=== PATIENT | male | born 1950 | race Caucasian/White ===

== ENCOUNTER 2019-09-02 18:16 | Inpatient (IN) ==
[2019-09-02] MEDS ORDERED: SODIUM CHLORIDE 0.9% 1000ML 1,000 ML IV SCH (18:45)
--- NOTE | 2019-09-02 18:48 | XRay Report ---
XR chest 1V portable CLINICAL HISTORY: fever COMPARISON STUDY: December 2010 FINDINGS: The heart is mildly enlarged. There is a retrocardiac opacity consistent with a hiatal jane ia. There is no failure. There is no focal pulmonary consolidation. There are no pleural effusions.[ IMPRESSION: 1. Cardiomegaly 2. Hiatal hernia 3. No acute findings Electronically signed by: Raúl Borges M.D. 09/02/2019 6:47 PM
[2019-09-02 19:27] LABS: Basophils # (auto) 0.01 K/uL (0-0.2); Basophils % (auto) 0.1 %; Eosinophils # (auto) 0.01 K/uL (0-0.5); Eosinophils % (auto) 0.1 %; Hematocrit (blood only) 40.2 % (42-52); Hemoglobin 13.2 g/dL (14.0-18.0); Immature Granulocytes # (auto) 0.01 K/uL (0.00-0.02); Immature Granulocytes % (auto) 0.1 %; Lymphocytes # (auto) 0.71 K/uL (1.2-3.4); Lymphocytes % (auto) 7.9 %; Mean Corpuscular Hemoglobin 28.6 pg (25-34); Mean Corpuscular Hgb Conc 32.8 g/dL (32-36); Mean Corpuscular Volume 87.2 fL (80-100); Mean Platelet Volume 12.1 fL (7.4-10.4); Monocytes # (auto) 0.44 K/uL (0.11-0.59); Monocytes % (auto) 4.9 %; Neutrophils # (auto) 7.85 K/uL (1.4-6.5); Neutrophils % (auto) 86.9 %; Platelet Count 156 K/uL (130-400); RDW Standard Deviation 47.8 fL (36.4-46.3); Red Blood Count 4.61 M/uL (4.7-6.1); White Blood Count 9.03 K/uL (4.8-10.8)
[2019-09-02 19:44] LABS: Alanine Aminotransferase 42 U/L (12-78); Albumin Level 3.3 gm/dl (3.4-5.0); Aspartate Aminotransferase 24 U/L (15-37); BUN Creatinine Ratio 16.2 (10-20); Blood Urea Nitrogen 18 mg/dl (7-18); Calcium 8.7 mg/dl (8.5-10.1); Carbon Dioxide 28 mmol/L (21-32); Chloride 105 mmol/L (98-107); Creatinine Clr Calc Pharmacy 69.7 ml/min; Est GFR (African American) 77.8; Est GFR (Non-African American) 67.1; Glucose 110 mg/dl (70-99); Potassium 3.8 mmol/L (3.5-5.1); Sodium 141 mmol/L (136-145)
[2019-09-02 19:49] LABS: Alkaline Phosphatase 112 U/L (45-117); Bilirubin,Total 0.5 mg/dl (0.2-1); Globulin 3.4 gm/dl (2.5-4.0); Total Protein 6.7 gm/dl (6.4-8.2); Troponin I < 0.015 ng/ml (0-0.045)
[2019-09-02] MEDS ORDERED: IOVERSOL 100ml IV PRN (20:30)
--- NOTE | 2019-09-02 20:41 | CT Scan Report ---
CT head/brain wo con CLINICAL HISTORY: Acute change in mental status. Episode delirium. COMPARISON STUDY: No previous studies for comparison. TECHNIQUE: Axial CT of the brain is performed from the vertex to the skull base. IV contrast was not administered for this examination. A dose lowering technique was utilized adhering to the principles of ALARA. CT DOSE: 773.57 mGy.cm FINDINGS: No intra or extra-axial mass lesions are visualized. There is no CT evidence of acute cortical infarc tion. There is no evidence of midline shift. There is no acute hemorrhage. No calvarial fractures ar e visualized. There are mild white matter hypodensities likely on a small vessel basis. There is no evidence of pathologic ventricular dilatation. There is no evidence of acute sinusitis IMPRESSION: No acute intracranial findings Electronically signed by: Raúl Borges M.D. 09/02/2019 8:39 PM
--- NOTE | 2019-09-02 20:51 | CT Scan Report ---
CT abd pelvis IV con only CLINICAL HISTORY: Abdominal pain. Fever. History of recent endoscopy with sphincterotomy. COMPARISON STUDY: None. TECHNIQUE: Patient was scanned in a dynamic helical fashion during intravenous administration of 93 c c of Optiray 320. A dose lowering technique was utilized adhering to the principles of ALARA. CT DOSE: 740.17 mGy.cm FINDINGS: Lower chest: There are left hilar ron calcifications. There is a moderate hiatal hernia. There are dependent atelectatic changes. There is no significant pleural fluid. Liver: There are no focal hepatic masses. There is pneumobilia consistent with the history of a St. c arotid. Gallbladder: Surgically absent. The common bile duct measures 9 mm. There is mild common bile duct wa ll thickening and mild edema surrounding the common hepatic duct. Clinical correlation regards to cho langitis is recommended. Spleen: The spleen is enlarged measuring 14.4 cm. Pancreas: Unremarkable. Adrenal glands: Unremarkable. Kidneys: No solid renal masses are visualized. There are nonobstructing left renal calculi. Bowel: There are no transition zones to indicate bowel obstruction. There is no evidence of acute div erticulitis. The appendix appears normal. Peritoneum: There is no free intraperitoneal air. There is trace free pelvic fluid. Vasculature: The abdominal aorta is normal in course and caliber. Adenopathy: None. Pelvic viscera: The bladder, and pelvic viscera are unremarkable. Skeletal structures: No destructive osseous lesions are seen. IMPRESSION: 1. No evidence of bowel obstruction. No evidence of free air 2. Normal appendix. No evidence of acute diverticulitis 3. Mild splenomegaly 4. Surgically absent gallbladder. 9 mm common bile duct with mild wall thickening and enhancement. Ad dition there is minimal edema surrounding the common hepatic duct. Clinical correlation regards to ch olangitis is recommended 5. Nonobstructing left renal calculi Electronically signed by: Raúl Borges M.D. 09/02/2019 8:49 PM
[2019-09-02] MEDS ORDERED: PIPERACILL/TAZOBAC CONSULT ACTIVE PRN ×2 (21:03→22:45)
[2019-09-02] MEDS ORDERED: PIPERACILLIN/TAZOBACTAM 4.5 GM/120 ML BAG IV ONE (21:03)
[2019-09-02] MEDS ORDERED: POLYETHYLENE (MIRALAX) 17 GM PACK PO PRN (22:45)
[2019-09-02] MEDS ORDERED: ACETAMINOPHEN 325 MG TAB PO PRN (22:45)
[2019-09-02] MEDS ORDERED: NITROGLYCERIN SL 0.4 MG/TAB TAB SL PRN (22:45)
--- NOTE | 2019-09-02 23:04 | Emergency Department Note ---
Entered by Radha Kleni acting as a scribe for Amy Key MD History of Present Illness General Chief complaint: Vertigo Stated complaint: DIZZY, HEADACHE Source: patient and family History of Present Illness Onset (ago): hour(s) 2 Location: head Maximum Pain Intensity: 2 Current Pain Intensity: 2 Quality: + other (disoriented) Associated symptoms: + confusion, + fever/chills and + other (dizziness) The patient is a 69 year old male who presents to the Emergency Room with complaints of dizziness and confusion that started a few hours ago. The patient reports that he had an endoscopy done at [facility] yesterday to remove gallstones. He was discharged home and felt normal until earlier today. He states that he started to feel dizzy and disoriented, so he drank water and ate a piece of pizza. He then went to lay down in his bed, and the patient's reports that this is when he began to not make sense while talking to her. She states that when she took his temperature, and it was over 101 degrees. Since arrival to the hospital, the patient has been coherent and his temperature had lowered to about 99 degrees. The patient has not been taking any pain medicine, and his last dose of Tylenol was taken yesterday around 18:00. Home Medications Home Medications Medication Instructions Recorded Confirmed Type allopurinol 100 mg PO QAM 09/02/19 09/02/19 History amlodipine 10 mg PO QAM 09/02/19 09/02/19 History aspirin 81 mg PO QAM 09/02/19 09/02/19 History atorvastatin 40 mg PO QAM 09/02/19 09/02/19 History famotidine 40 mg PO DAILY PRN 09/02/19 09/02/19 History magnesium 0 mg PO QAM 09/02/19 09/02/19 History metoprolol succinate 25 mg PO QAM 09/02/19 09/02/19 History omeprazole 20 mg PO QAM 09/02/19 09/02/19 History Allergies Allergy/AdvReac Type Severity Reaction Status Date / Time No Known Allergies Allergy Verified 09/02/19 19:53 Past Med/Surg History Medical History No pertinent past medical history Surgical History History of cholecystectomy Social History Preferred Language: Sinhala Communication Ability: Effective Roofer Required: No Beliefs That Will Affect Care: None Current Living Situation: Spouse Feels Safe at Home: Yes Safety Concerns: Feels Safe At This Time Smoking Status: Never smoker Hx Alcohol Use: No Hx Substance Use: No Review of Systems See HPI for pertinent positives & negatives. and A total of 10 systems reviewed and were otherwise negative Physical Exam Vital Signs Vital Signs - 24 hr 09/02/19 18:20 09/02/19 20:55 Temperature 37.4 C Temperature Source Oral Sepsis Recent Fever Within 48 Hours No Sepsis New/Unexplained Change in Mental Status No Sepsis Action Taken by Nursing No Action Required Pulse Rate 68 Pulse Rate [Left Finger] 56 L Respiratory Rate 18 18 Blood Pressure 130/84 Blood Pressure [Right Arm] 115/73 Blood Pressure Mean 99 Blood Pressure Mean [Right Arm] 87 Blood Pressure Position [Right Arm] Sitting Pulse Oximetry 98 92 Oxygen Delivery Method Room Air Nasal Cannula Oxygen Flow Rate 2 Vital signs reviewed. General: Well-appearing elderly male, in no significant distress. HEENT: No scleral icterus, PERRLA, neck supple. Atraumatic. Cardiovascular: Regular rate and rhythm, no extra sounds. Pulmonary: Clear to auscultation bilaterally, normal work of breathing. Abdomen: Soft, nontender, nondistended, positive bowel sounds. Musculoskeletal: Atraumatic, no peripheral edema. Neurologic: Patient awake alert and oriented x 3, full strength in all 4 extremities. Skin: Warm, dry, no rash Course 1834: Past medical records reviewed. The patient was evaluated in room B02. A complete history and physical exam was performed. 2107: I updated the patient on his lab and imaging results. 2116: I rechecked on the patients and discussed his condition with him and his family. The patient verbally expressed understanding and agreement of the treatment plan. The patient will be evaluated for further treatment. I spoke to Dr. Jackson, [facility] hospitalist, who agreed to take over care for this patient. Administered Medications Dextrose/Sodium Chloride (D5w And Nss) 1,000 mls @ 125 mls/hr IV .Q8H MEAGHAN Stop: 10/02/19 22:44 Last Admin: 09/02/19 23:16 Dose: 125 mls/hr Documented by: [id number] Famotidine 20 mg/ Syringe 5 mls @ 2.5 mls/min IV BID MEAGHAN Stop: 10/03/19 00:00 Last Admin: 09/02/19 23:27 Dose: 2.5 mls/min Documented by: [id number] Ondansetron HCl (Zofran) 4 mg IV Q6H PRN PRN Reason: Nausea Stop: 10/02/19 22:44 Last Admin: 09/03/19 00:04 Dose: 4 mg Documented by: [id number] Discontinued Medications Sodium Chloride (Nss 1000ml) 1,000 mls @ 100 mls/hr IV .Q10H MEAGHAN Stop: 09/03/19 04:44 Last Infusion: 09/02/19 22:24 Dose: 0 mls/hr Documented by: [id number] Admin: 09/02/19 19:23 Dose: 100 mls/hr Documented by: [id number] Piperacillin Sod/Tazobactam Sod (Zosyn) 4.5 gm in 120 mls @ 240 mls/hr IV NOW ONE Stop: 09/02/19 21:32 Last Infusion: 09/02/19 22:24 Dose: 0 mls/hr Documented by: [id number] Admin: 09/02/19 21:15 Dose: 240 mls/hr Documented by: [id number] Ioversol (Optiray 320 100ml) 93 ml IV ONCE PRN PRN Reason: Interaction Checking Stop: 09/06/19 20:29 Last Admin: 09/02/19 20:31 Dose: 93 ml Documented by: [id number] Medical Decision Making Differential Diagnosis Differential diagnosis includes: appendicitis, diverticulitis, PUD, biliary pathology, UTI, pancreatitis, obstruction, mesenteric ischemia, aortic pathology, infections, inflammatory bowel disease, renal colic, as well as others were entertained. Medical Records Attestation: I reviewed the patient's medical records. Home Medications Current Medication List: was personally reviewed by me Laboratory Data Attestation: I reviewed the patient's lab results. Result diagrams: 09/02/19 19:15 09/02/19 19:15 Lab Results 09/02/19 09/02/19 09/02/19 Range/Units 19:15 19:15 19:15 WBC 9.03 (4.8-10.8) K/uL RBC 4.61 L (4.7-6.1) M/uL Hgb 13.2 L (14.0-18.0) g/dL Hct 40.2 L (42-52) % MCV 87.2 (80-100) fL MCH 28.6 (25-34) pg MCHC 32.8 (32-36) g/dL RDW Std Deviation 47.8 H (36.4-46.3) fL RDW Coeff of Rhoda 15.0 H (11.5-14.5) % Plt Count 156 (130-400) K/uL MPV 12.1 H (7.4-10.4) fL Immature Gran % (Auto) 0.1 % Neut % (Auto) 86.9 % Lymph % (Auto) 7.9 % Graham % (Auto) 4.9 % Eos % (Auto) 0.1 % Baso % (Auto) 0.1 % Immature Gran # (Auto) 0.01 (0.00-0.02) K/uL Neut # (Auto) 7.85 H (1.4-6.5) K/uL Lymph # (Auto) 0.71 L (1.2-3.4) K/uL Graham # (Auto) 0.44 (0.11-0.59) K/uL Eos # (Auto) 0.01 (0-0.5) K/uL Baso # (Auto) 0.01 (0-0.2) K/uL Sodium 141 (136-145) mmol/L Potassium 3.8 (3.5-5.1) mmol/L Chloride 105 (98-107) mmol/L Carbon Dioxide 28 (21-32) mmol/L Anion Gap 8.0 (3-11) BUN 18 (7-18) mg/dl Creatinine 1.12 (0.6-1.4) mg/dl Est Cr Clr Drug Dosing 69.7 ml/min Est GFR ( Amer) 77.8 Est GFR (Non-Af Amer) 67.1 BUN/Creatinine Ratio 16.2 (10-20) Glucose 110 H (70-99) mg/dl Lactate 2.2 H* (0.4-2.0) mmol/L Calcium 8.7 (8.5-10.1) mg/dl Total Bilirubin 0.5 (0.2-1) mg/dl AST 24 (15-37) U/L ALT 42 (12-78) U/L Alkaline Phosphatase 112 (45-117) U/L Troponin I < 0.015 (0-0.045) ng/ml Total Protein 6.7 (6.4-8.2) gm/dl Albumin 3.3 L (3.4-5.0) gm/dl Globulin 3.4 (2.5-4.0) gm/dl Albumin/Globulin Ratio 1.0 (0.9-2) Imaging Data Radiologist's Impression: Radiology results as stated below per my review and the radiologist's interpretation: CT head/brain wo con CLINICAL HISTORY: Acute change in mental status. Episode delirium. COMPARISON STUDY: No previous studies for comparison. TECHNIQUE: Axial CT of the brain is performed from the vertex to the skull base. IV contrast was not administered for this examination. A dose lowering technique was utilized adhering to the principles of ALARA. CT DOSE: 773.57 mGy.cm FINDINGS: No intra or extra-axial mass lesions are visualized. There is no CT evidence of acute cortical infarction. There is no evidence of midline shift. There is no acute hemorrhage. No calvarial fractures are visualized. There are mild white matter hypodensities likely on a small vessel basis. There is no evidence of pathologic ventricular dilatation. There is no evidence of acute sinusitis IMPRESSION: No acute intracranial findings Electronically signed by: Raúl Borges M.D. 09/02/2019 8:[address] abd pelvis IV con only CLINICAL HISTORY: Abdominal pain. Fever. History of recent endoscopy with sphincterotomy. COMPARISON STUDY: None. TECHNIQUE: Patient was scanned in a dynamic helical fashion during intravenous administration of 93 cc of Optiray 320. A dose lowering technique was utilized adhering to the principles of ALARA. CT DOSE: 740.17 mGy.cm FINDINGS: Lower chest: There are left hilar ron calcifications. There is a moderate hiatal hernia. There are dependent atelectatic changes. There is no significant pleural fluid. Liver: There are no focal hepatic masses. There is pneumobilia consistent with the history of a St. carotid. Gallbladder: Surgically absent. The common bile duct measures 9 mm. There is mild common bile duct wall thickening and mild edema surrounding the common hepatic duct. Clinical correlation regards to cholangitis is recommended. Spleen: The spleen is enlarged measuring 14.4 cm. Pancreas: Unremarkable. Adrenal glands: Unremarkable. Kidneys: No solid renal masses are visualized. There are nonobstructing left renal calculi. Bowel: There are no transition zones to indicate bowel obstruction. There is no evidence of acute diverticulitis. The appendix appears normal. Peritoneum: There is no free intraperitoneal air. There is trace free pelvic fluid. Vasculature: The abdominal aorta is normal in course and caliber. Adenopathy: None. Pelvic viscera: The bladder, and pelvic viscera are unremarkable. Skeletal structures: No destructive osseous lesions are seen. IMPRESSION: 1. No evidence of bowel obstruction. No evidence of free air 2. Normal appendix. No evidence of acute diverticulitis 3. Mild splenomegaly 4. Surgically absent gallbladder. 9 mm common bile duct with mild wall thickening and enhancement. Addition there is minimal edema surrounding the common hepatic duct. Clinical correlation regards to cholangitis is recommended 5. Nonobstructing left renal calculi Electronically signed by: Raúl Borges M.D. 09/02/2019 8:49 PM XR chest 1V portable CLINICAL HISTORY: fever COMPARISON STUDY: December 2010 FINDINGS: The heart is mildly enlarged. There is a retrocardiac opacity consistent with a hiatal hernia. There is no failure. There is no focal pulmonary consolidation. There are no pleural effusions.[ IMPRESSION: 1. Cardiomegaly 2. Hiatal hernia 3. No acute findings Electronically signed by: Raúl Borges M.D. 09/02/2019 6:47 PM ECG Data Attestation: I personally reviewed and interpreted this ECG as follows: Indication: abdominal pain Rate (beats per minute): 66 Rhythm: sinus rhythm Findings: + other (Previous inferior infarct. Previous anterior infarct. QTC: 408. ), + PVC and + RBBB (incomplete); no acute ischemic change Blood Pressure Blood Pressure Findings: Normal blood pressure Blood Pressure Disposition: did not require urgent referral MDM Narrative This patient was evaluated and appeared to be in no significant distress. IV access was obtained and laboratory work was drawn. Patient was placed on the panel monitor. IV fluids were initiated. Patient is afebrile in the emergency department however his reports a temperature over 101 degrees at home. WBC is within normal limits. Lactate is mildly elevated, likely secondary to the recent procedure. CT imaging of the abdomen pelvis was performed and reveals a 9 mm common bile duct with mild wall thickening and enhancement. I suspect this is likely postprocedural and not an acute infectious etiology however it is difficult to say for certain. CT of the head was performed due to the delirium earlier today, the study is negative for acute findings. Blood cultures are pending. Patient was given IV Zosyn 4.5 g. Patient was reevaluated and felt somewhat improved. He will be evaluated by the hospitalist service, Dr. Jackson, for further management. Impression & Plan Cholangitis, S/P ERCP Discharge Plan Visit Data *Final* Discharge Date/Time: 09/02/19 22:26 Chief Complaint: Vertigo Stated Complaint: DIZZY, HEADACHE ED Provider: Amy Key Discharge Problem: Cholangitis, S/P ERCP Patient Disposition: Admitted As Inpatient Discharge Instructions Interventions: ED Discharge Assessment Last Done: 09/02/19 22:26 The scribe's documentation has been prepared under my direction and personally reviewed by me in its entirety. I confirm that the note above accurately reflects all work, treatment, procedures, and medical decision making performed by me.
[2019-09-02] MEDS: D5W AND NSS 1,000 ML IV SCH (23:16)
[2019-09-02] MEDS: FAMOTIDINE 20 MG in SYRINGE 3 ML IV SCH (23:27)
--- NOTE | 2019-09-02 23:52 | History and Physical Report ---
DATE OF ADMISSION: 09/02/2019 CHIEF COMPLAINT: Dizzy, short of breath, fever, and some confusion. HISTORY OF PRESENT ILLNESS: This is a 69-year-old male with past medical history significant for hypertension, hyperlipidemia, prostate cancer status post surgery and radiation treatment in 2013, history of the laparoscopic cholecystectomy at [facility] in 2016. He was having abdominal pains, saw the GI and MRCP was done which showed choledocholithiasis with 2 gallstones, status post ERCP yesterday. Complete removal was accomplished with sphincterotomy, sphincteroplasty, and balloon extraction and he was discharged home. The patient did okay yesterday, but since today afternoon, his thought he was a little confused. The patient subjectively felt short of breath. He does not know if he was really short of breath or he dreamt. There was a fever at home and he was also feeling dizzy, so he came to the ER. In the ER, he was afebrile and hemodynamically stable. His white count was normal, but his lactate was 2.2. CT of the abdomen and pelvis showed 9 mm common bile duct with mild wall thickening and enhancement and minimal edema seen in the common hepatic duct and correlation with regards to cholangitis recommended. His LFTs were okay. The patient says since he was put on oxygen, the dizziness improved. Currently resting comfortably and hemodynamically stable. Also has received fluids and Zosyn in the ER. Has some mild headache. No blurred visions. He is hard of hearing. Has some runny nose. He thinks he was getting cold. He has some cough with some whitish phlegm. He has some sore throat from the procedure yesterday. Appetite is okay, but did not eat from lunch today. Denies any chest pain or shortness of breath currently. He had some mild abdominal discomfort earlier but there is no pain now. No nausea, no vomiting. No diarrhea or constipation. No blood in the stools or black stools. Normal bladder movements. No hematuria or burning micturition. No swelling in the legs. No rash. ALLERGIES: No known drug allergies. PAST MEDICAL HISTORY: As mentioned above. PAST SURGICAL HISTORY: Colonoscopy with biopsy, EGDs, radical removal prostate biopsy, repair of recurrent inguinal hernia, and ERCP yesterday. MEDICATIONS: The patient is on magnesium 250 mg p.o. daily, Pepcid 40 mg p.o. b.i.d., allopurinol 100 mg p.o. daily, Toprol-XL 25 mg p.o. daily, triamcinolone apply to affected area p.r.n., omeprazole 20 mg p.o. at bedtime, Lasix 20 mg p.o. daily p.r.n. for weight gain, amlodipine 10 mg p.o. daily, tramadol 50 mg p.o. q. 6 hours p.r.n., atorvastatin 40 mg p.o. daily, aspirin 81 mg p.o. daily. FAMILY HISTORY: No family history on file. SOCIAL HISTORY: . No smoking, no alcohol, no drug use. REVIEW OF SYSTEMS: As per HPI. Rest of the review of systems negative. PHYSICAL EXAMINATION: GENERAL: The patient is of moderate built, not in acute distress. VITAL SIGNS: Temperature 37.4, pulse 56, respiratory rate 18, blood pressure 115/77, oxygen 92% on 2 liters. HEENT: No pallor, no icterus. Pupils equal, round, reactive to light. NECK: No JVD, no neck masses, no carotid bruits. CARDIOVASCULAR: S1, S2 heard, regular rate and rhythm, no murmur, no gallop. RESPIRATORY SYSTEM: Normal AP diameter. No accessory muscle use. No wheezing, no crackles. ABDOMEN: Soft, bowel sounds present, nontender. No distention. CENTRAL NERVOUS SYSTEM: Cranial nerves II-XII grossly intact, nonfocal. EXTREMITIES: No edema, no erythema. LABORATORY DATA: WBC 9.03, hemoglobin 13.2, hematocrit 40.2, platelets 156. Sodium 141, potassium 3.8, chloride 105, bicarbonate 28, BUN 18, creatinine 1.12, serum glucose 110. Lactate 2.2, calcium 8.7, total bilirubin 0.5, AST 24, ALT 42, alkaline phosphatase 112. Troponin I less than 0.015. IMAGING DATA: CT of the head, no acute intracranial findings. CT of the abdomen and pelvis, no evidence of bowel obstruction, no evidence of free air, normal appendix. No evidence of acute diverticulitis, mild splenomegaly, surgically absent gallbladder, 9 mm common bile duct with mild wall thickening and enhancement. In addition, there is minimal edema surrounding the common bile duct. Clinical correlation with regards to cholangitis recommended. Nonobstructing left renal calculi. Chest x-ray, cardiomegaly, hiatal hernia, no acute findings. EKG: Accelerated junctional rhythm with occasional PVCs, incomplete right bundle branch block, Q-waves in inferior leads. ASSESSMENT AND PLAN: This is a 69-year-old male who is status post ERCP and 2 common bile duct stones extracted yesterday. Comes with temperature at home and some confusion and dizziness and subjective feeling of shortness of breath. 1. Confusion , shortness of breath, fever at home, and dizziness. Currently, the patient is hemodynamically stable here, but lactate is 2.2. Possible sepsis from the procedure done yesterday. Empirically treating with IV Zosyn. Currently no leukocytosis, afebrile in the ER. We will follow the cultures and continue on IV Zosyn and IV fluids. We will keep him n.p.o. for now and consult GI in the a.m. for further recommendations. We will follow the LFTs and lactate levels. His confusion and dizziness also could be from the meds received during ercp yesterday. Will monitor. 2. Junctional rhythm possibly from above. No chest pain. Troponins negative. Will follow repeat EKG in the a.m. 3. Hypertension. Continue his home medication of amlodipine, Toprol-XL withholding parameters. 4. Hyperlipidemia. Continue statin. 5. History of prostate cancer status post surgery and radiation. 6. Gastroesophageal reflux disease, continue his PPI. The patient not to take aspirin or nsaids for 5 days from the procedure yesterday. 7. Deep venous thrombosis prophylaxis, sequential compression devices for now. 8. Disposition: Observe in med/surg tele. Level 1 full code. MTDD
[2019-09-03] MEDS: ONDANSETRON INJ 2 MG/ML 2 ML VIAL IV PRN ×2 (00:04→07:19)
[2019-09-03] MEDS ORDERED: PROMETHAZINE HCL 12.5 MG in SODIUM CHLORIDE 0.9% 50 ML IV PRN (01:20)
[2019-09-03] MEDS: PIPERACILLIN/TAZOBACTAM 3.375 GM in DEXTROSE 5% 100 ML IV SCH ×2 (01:42→09:40)
[2019-09-03] MEDS ORDERED: SODIUM CHLORIDE 0.9% 500 ML IV SCH (04:15)
[2019-09-03 06:16] LABS: Hematocrit (blood only) 35.3 % (42-52); Hemoglobin 11.3 g/dL (14.0-18.0); Mean Corpuscular Hemoglobin 27.8 pg (25-34); Mean Corpuscular Volume 86.9 fL (80-100); Mean Platelet Volume 12.4 fL (7.4-10.4); Platelet Count 130 K/uL (130-400); RDW Coefficient of Variation 15.2 % (11.5-14.5); RDW Standard Deviation 48.8 fL (36.4-46.3); Red Blood Count 4.06 M/uL (4.7-6.1); White Blood Count 7.88 K/uL (4.8-10.8)
[2019-09-03 06:20] LABS: Basophils # (auto) 0.01 K/uL (0-0.2); Basophils % (auto) 0.1 %; Immature Granulocytes # (auto) 0.01 K/uL (0.00-0.02); Immature Granulocytes % (auto) 0.1 %; Lymphocytes # (auto) 1.09 K/uL (1.2-3.4); Lymphocytes % (auto) 13.8 %; Monocytes % (auto) 6.3 %; Neutrophils # (auto) 6.27 K/uL (1.4-6.5); Neutrophils % (auto) 79.7 %; Platelet Estimate Normal (Normal)
[2019-09-03 06:28] LABS: Albumin Level 2.7 gm/dl (3.4-5.0); BUN Creatinine Ratio 16.1 (10-20); Bilirubin Direct 0.2 mg/dl (0-0.2); Calcium 7.9 mg/dl (8.5-10.1); Creatinine Clr Calc Pharmacy 76.3 ml/min; Est GFR (African American) 88.2; Est GFR (Non-African American) 76.1; Magnesium 1.9 mg/dl (1.8-2.4); Potassium 3.5 mmol/L (3.5-5.1)
[2019-09-03 06:37] LABS: Bilirubin,Total 0.5 mg/dl (0.2-1); Total Protein 5.5 gm/dl (6.4-8.2); Troponin I 0.02 ng/ml (0-0.045)
[2019-09-03] MEDS ORDERED: ACETAMINOPHEN 325 MG TAB PO PRN (07:18)
[2019-09-03] MEDS ORDERED: D5W AND 1/2NSS 1,000 ML IV SCH (07:30)
[2019-09-03] MEDS ORDERED: MAGNESIUM SULFATE / D5W 1 GM/100 ML BAG IV ONE (07:30)
[2019-09-03] MEDS ORDERED: POTASSIUM CHLORIDE / WTR 10 MEQ/100 ML PLCT IV ONE (08:30)
[2019-09-03] MEDS: D5W AND NSS 1,000 ML IV SCH (08:37)
[2019-09-03] MEDS ORDERED: PNEUMOCOCCAL ADMINISTRATION CHARGE ONE (09:00)
[2019-09-03] MEDS ORDERED: METOPROLOL SUCC 25MG EXT REL TAB PO SCH (09:00)
[2019-09-03] MEDS ORDERED: PNEUMOCOCCAL POLYSACCHARIDES 25 MCG/0.5 ML VIAL/SYR IM ONE (09:00)
[2019-09-03] MEDS ORDERED: AMLODIPINE BESYLATE 5 MG TAB PO SCH (09:00)
[2019-09-03] MEDS ORDERED: PANTOprazole 40 MG TAB PO SCH (09:00)
[2019-09-03] MEDS ORDERED: INFLUENZA VIRUS QUAD VACCINE 0.5 ML SYR IM ONE (09:00)
[2019-09-03] MEDS ORDERED: ATORVASTATIN 40 MG TAB PO SCH (09:00)
[2019-09-03] MEDS ORDERED: MAGNESIUM OXIDE 400 MG TAB PO SCH (09:00)
[2019-09-03] MEDS ORDERED: INFLUENZA ADMINISTRATION CHARGE ONE (09:00)
[2019-09-03] MEDS ORDERED: allopurinoL 100 MG TAB PO SCH (09:00)
[2019-09-03] MEDS: FAMOTIDINE 20 MG in SYRINGE 3 ML IV SCH (09:41)
--- NOTE | 2019-09-03 12:20 | History & Physical Report ---
Date of Service September 03, 2019 History of Present Illness Primary Care Provider: Porter Samano DO Source: Pt HPI: 69 yo M with PMH as below s/p ERCP on Wednesday by Dr. Islas for choledocholithiasis with stone extraction, sphincterotomy, sphincteroplasty. Procedure was uncomplicated, and pt was discharged home. VS at home with HR 58, O2 at 98/RA. Pt with SOB, confusion, fever to 102 at home; subsequently presented to ER. On presentation to he was afebriled, normotensive with pulse in the 50's, EKG by ER MD read as sinus rhythm but documented as junctional rhythm by admitting hospitalist. Admission labs showed lactate of 2 and creat 1.12, normal WBC, normal LFT's; CT showed some thickening around CBD but no fluid/air and no evidence of pancreatitis. Over the night, he has remained intermittently opal on tele, normotensive, with sats in the low 90's on room a ir. Today, he has persistent complaint of "lightheadedness" and had nausea fter attempt at PO. He denies abd pain. He denies dark stool, rectal bleeding. PE: Appears comfortable HEENT: anicteric, JVP to sternal angle at 30 degrees. CV: RRR REsp: CTA anteriorly Abd: soft NT Labs reviewed. Sig only for hgb fall from 13 to 11 on admission, with pt receiving 3 liters of fluids. overnight. A/P: - His symptoms are most likely due to a cardiac etiology - he is intermittently opal with a junctional rhthym over night, and he appears volume overloaded with increased JVP, borderline sats on room air, and a net input of 3 liters of IVFs overnight. There is no evidence of a GI complication - the CT findings are likely related to recent sphincterotomy/stone extraction, his LFTs are normal, his pancreatic imaging is normal, and his abd exam is benign. Would recommend d/c abx, diet as young, holding chronotropic agents, and cards consult. I discussed my recs with cards service and hospitalist. Please call with questions. Allergies Allergy/AdvReac Type Severity Reaction Status Date / Time No Known Allergies Allergy Verified 09/02/19 19:53 Home Medications Home Medications Medication Instructions Recorded Confirmed Type allopurinol 100 mg PO QAM 09/02/19 09/02/19 History amlodipine 10 mg PO QAM 09/02/19 09/02/19 History aspirin 81 mg PO QAM 09/02/19 09/02/19 History atorvastatin 40 mg PO QAM 09/02/19 09/02/19 History famotidine 40 mg PO DAILY PRN 09/02/19 09/02/19 History magnesium 0 mg PO QAM 09/02/19 09/02/19 History metoprolol succinate 25 mg PO QAM 09/02/19 09/02/19 History omeprazole 20 mg PO QAM 09/02/19 09/02/19 History Past Med/Surg History Medical History No pertinent past medical history Surgical History History of cholecystectomy Social History Preferred Language: Kiswahili Communication Ability: Effective [employer] Required: No Beliefs That Will Affect Care: None Current Living Situation: Spouse Feels Safe at Home: Yes Safety Concerns: Feels Safe At This Time Smoking Status: Never smoker Hx Alcohol Use: No Hx Substance Use: No Results & Data Vital Signs (Past 12 Hours) Vital Signs Temp Pulse Resp BP Pulse Ox 09/03/19 11:29 36.7 C 57 L 16 144/78 H 97 09/03/19 08:00 36.7 C 56 L 18 124/76 91 09/03/19 04:12 36.9 C 46 L 18 97/61 L 92 Code Status & VTE Plan VTE Prophylaxis Plan VTE Prophylaxis will be ordered: Yes
--- NOTE | 2019-09-03 14:52 | Cardiology Consultation ---
Date of Consultation September 03, 2019 Assessment & Plan (1) Bradycardia: Episode is suggestive of vasovagal event with association with acute emesis. Patient does have cardiac risk factors. I agree with holding beta-leander for time being. EKG reviewed echocardiogram will be ordered and reviewed We will consider stress testing if that this admission or post hospital discharge Follow closely for other occult inciting causes given recent procedure. Maintain telemetry (2) Vasovagal episode: As above (3) S/P ERCP: History of Present Illness Reason for Consultation: Transient bradycardia and sinus pauses Requesting Physician: Dr. Mcintyre Attending Physician: Rashad Mcintyre MD History of Present Illness 69-year-old male prior history of hypertension hyperlipidemia but no prior history of cardiac disease. He does carry a familial history of atherosclerotic coronary disease relatively young ages. Patient presents this admission having recently undergone ERCP day prior for choledocholithiasis. He noted symptoms of confusion malaise and chills and presented to the emergency room. During episode of emesis was noted to be markedly bradycardic with sinus pause. Patient is referred now for further evaluation. He denies chest pains dizziness or lightheadedness. Notes no prior history of syncope or near syncope. Has been aware of some however more pronounced exertional dyspnea confirmed by spouse. Denies prior history of myocardial infarction angina congestive heart failure. Notes no history of TIA or stroke. Notes no history of diabetes mellitus. No melena hematochezia dysuria hematuria. No history of overt bleeding. Carries a history of prior prostate carcinoma status post treatment. Blood pressures generally well controlled. Cholesterols have been excellent on last testing report Allergies Allergy/AdvReac Type Severity Reaction Status Date / Time No Known Allergies Allergy Verified 09/02/19 19:53 Home Medications Home Medications Medication Instructions Recorded Confirmed Type allopurinol 100 mg PO QAM 09/02/19 09/02/19 History amlodipine 10 mg PO QAM 09/02/19 09/02/19 History aspirin 81 mg PO QAM 09/02/19 09/02/19 History atorvastatin 40 mg PO QAM 09/02/19 09/02/19 History famotidine 40 mg PO DAILY PRN 09/02/19 09/02/19 History magnesium 0 mg PO QAM 09/02/19 09/02/19 History metoprolol succinate 25 mg PO QAM 09/02/19 09/02/19 History omeprazole 20 mg PO QAM 09/02/19 09/02/19 History Patient History Medical History No pertinent past medical history Surgical History History of cholecystectomy Social History Preferred Language: Yoruba Communication Ability: Effective 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 Beliefs That Will Affect Care: None Current Living Situation: Spouse Feels Safe at Home: Yes Safety Concerns: Feels Safe At This Time Smoking Status: Never smoker Hx Alcohol Use: No Hx Substance Use: No Review of Systems Review of Systems: All systems reviewed & are unremarkable except as noted in HPI & below Physical Exam Constitutional: WD/WN, vitals as above Eyes: PERRL, conjunctivae normal, anicteric sclerae ENMT: external ear and nose normal, oropharynx normal Neck: trachea midline, no thyromegaly Respiratory: normal respiratory effort, lungs clear to auscultation Cardiovascular: Rate/Rhythm: regular rate and regular rhythm Heart Sounds: normal S1 and normal S2; no gallop and no murmur Palpation: normal PMI Vessels: normal carotid upstroke and radial pulses present; no JVD and no carotid bruit Extremities: no edema Gastrointestinal (Abdomen): normal bowel sounds, soft, nontender, no hepato splenomegaly Musculoskeletal: no cyanosis or clubbing, extremities motor strength 5/5 Skin: no rashes, warm and dry Neurologic: PERRL, EOMI, accommodation nl, no face palsy, no dysarthria Psychiatric: A+Ox3, euthymic affect Results & Data Vital Signs (Past 12 Hours) Vital Signs Temp Pulse Resp BP Pulse Ox 09/03/19 11:29 36.7 C 57 L 16 144/78 H 97 09/03/19 08:00 36.7 C 56 L 18 124/76 91 09/03/19 04:12 36.9 C 46 L 18 97/61 L 92 Laboratory Results Laboratory Results - last 24 hr 09/02/19 09/02/19 09/02/19 19:15 19:15 19:15 WBC 9.03 RBC 4.61 L Hgb 13.2 L Hct 40.2 L MCV 87.2 MCH 28.6 MCHC 32.8 RDW Std Deviation 47.8 H RDW Coeff of Rhoda 15.0 H Plt Count 156 MPV 12.1 H Immature Gran % (Auto) 0.1 Neut % (Auto) 86.9 Lymph % (Auto) 7.9 [place] % (Auto) 4.9 Eos % (Auto) 0.1 Baso % (Auto) 0.1 Immature Gran # (Auto) 0.01 Neut # (Auto) 7.85 H Lymph # (Auto) 0.71 L [place] # (Auto) 0.44 Eos # (Auto) 0.01 Baso # (Auto) 0.01 Platelet Estimate Sodium 141 Potassium 3.8 Chloride 105 Carbon Dioxide 28 Anion Gap 8.0 BUN 18 Creatinine 1.12 Est Cr Clr Drug Dosing 69.7 Est GFR ( Amer) 77.8 Est GFR (Non-Af Amer) 67.1 BUN/Creatinine Ratio 16.2 Glucose 110 H Lactate 2.2 H* Calcium 8.7 Magnesium Total Bilirubin 0.5 Direct Bilirubin AST 24 ALT 42 Alkaline Phosphatase 112 Troponin I < 0.015 Total Protein 6.7 Albumin 3.3 L Globulin 3.4 Albumin/Globulin Ratio 1.0 09/03/19 09/03/19 09/03/19 00:28 05:22 05:22 WBC 7.88 RBC 4.06 L Hgb 11.3 L Hct 35.3 L MCV 86.9 MCH 27.8 MCHC 32.0 RDW Std Deviation 48.8 H RDW Coeff of Rhoda 15.2 H Plt Count 130 MPV 12.4 H Immature Gran % (Auto) 0.1 Neut % (Auto) 79.7 Lymph % (Auto) 13.8 [place] % (Auto) 6.3 Eos % (Auto) 0.0 Baso % (Auto) 0.1 Immature Gran # (Auto) 0.01 Neut # (Auto) 6.27 Lymph # (Auto) 1.09 L [place] # (Auto) 0.50 Eos # (Auto) 0.00 Baso # (Auto) 0.01 Platelet Estimate Normal Sodium 143 Potassium 3.5 Chloride 109 H Carbon Dioxide 26 Anion Gap 7.0 BUN 16 Creatinine 1.01 Est Cr Clr Drug Dosing 76.3 Est GFR ( Amer) 88.2 Est GFR (Non-Af Amer) 76.1 BUN/Creatinine Ratio 16.1 Glucose 141 H Lactate 1.5 Calcium 7.9 L Magnesium 1.9 Total Bilirubin 0.5 Direct Bilirubin 0.2 AST 24 ALT 45 Alkaline Phosphatase 99 Troponin I 0.020 Total Protein 5.5 L Albumin 2.7 L Globulin Albumin/Globulin Ratio
--- NOTE | 2019-09-03 16:17 | Hospitalist Progress Note ---
Date of Service September 03, 2019 Assessment & Plan (1) S/P ERCP: -as per admission H and P "This is a 69-year-old male with past medical history significant for hypertension, hyperlipidemia, prostate cancer status post surgery and radiation treatment in 2013, history of the laparoscopic casandra cystectomy at [place] in 2016. He was having abdominal pains, saw the GI and MRCP was done which showed choledocholithiasis with 2 gallstones, status post ERCP yesterday. Complete removal was accomplished with sphincterotomy, sphincteroplasty, and balloon extraction and he was discharged home. The patient did okay yesterday, but since today afternoon, his thought he was a little confused. The patient subjectively felt short of breath. He does not know if he was really short of breath or he dreamt. There was a fever at home and he was also feeling dizzy, so he came to the ER. In the ER, he was afebrile and hemodynamically stable. His whitecount was normal, but his lactate was 2.2. CT of the abdomen and pelvis showed 9 mm common bile duct with mild wall thickening and enhancement and minimal edema seen in the common hepatic duct and correlation with regards to cholangitis recommended. His LFTs were okay. The patient says since he was put on oxygen, the dizziness improved." -Patient was evaluated by gastroenterology consult on 09/03/[address] Forrester does not suspect cholangitis and noting patient with normal white blood cell counts. He recommend that Zosyn antibiotic be stopped and that patient be evaluated by cardiology service Confusion -initial confusion may have been from recent anesthesia medications from outpatient ERCP -is at mental baseline Nausea and Vomiting, Dizziness -IV antiemetics prn -unclear as to etiology of vomiting at this time -patient has received IV fluids -trial of liquid diet -hold atorvastatin for now given less oral intake -dizziness appears resolved (2) Bradycardia: -given patient's bradycardia and low to low normotensive hypotension, hospitalist stopped any amlodipine or metoprolol from being given on 09/03/19 -Transient bradycardia and sinus pauses is likely due to vasovagal episodes with vomiting as per cardiology consult -echocardiogram of normal ejection fraction of 60 to 65 percent and no wall motion abnormalities History of hypertension -monitor off anti-hypertensives for now unless blood pressure above 160/90 (3) Vasovagal episode: -Transient bradycardia and sinus pauses is likely due to vasovagal episodes with vomiting as per cardiology consult -continue telemetry monitoring Gastroesophageal reflux disease -on famotidine History of prostate cancer -has had in the past surgery and radiation DVT prophylaxis: SCDs Subjective Patient had episode of vomiting this AM that correlated with pauses on the telemetry. This happened again during the day time. Otherwise, patient has been in sinus rhythm. Patient feels comfortable currently. no respiratory distress. no ches pain. no palpitations. he is not feeling dizzy or lightheaded Physical Exam Constitutional: comfortable Eyes: PERRL, conjunctivae normal, anicteric sclerae EOM intact bilaterally ENMT: external ear and nose normal, oropharynx normal Neck: normal visual inspection Respiratory: normal respiratory effort, lungs clear to auscultation Cardiovascular: Rate/Rhythm: regular rate and regular rhythm Gastrointestinal (Abdomen): normal bowel sounds, soft, nontender, no hepatosplenomegaly Musculoskeletal: Head/Neck/Chest: normocephalic and head atraumatic Neurologic: PERRL, EOMI, accommodation nl, no face palsy, no dysarthria CN's II-XI intact bilaterally Psychiatric: Orientation: alert and oriented x 3 Results & Data Vital Signs (Past 12 Hours) Vital Signs Temp Pulse Resp BP BP Pulse Ox 09/03/19 16:12 36.5 C 60 19 142/81 H 97 09/03/19 11:29 36.7 C 57 L 16 144/78 H 97 09/03/19 08:00 36.7 C 56 L 18 124/76 91
[2019-09-04 06:32] LABS: Basophils # (auto) 0.02 K/uL (0-0.2); Basophils % (auto) 0.3 %; Eosinophils # (auto) 0.07 K/uL (0-0.5); Eosinophils % (auto) 0.9 %; Hematocrit (blood only) 39.9 % (42-52); Hemoglobin 13.1 g/dL (14.0-18.0); Immature Granulocytes # (auto) 0.04 K/uL (0.00-0.02); Immature Granulocytes % (auto) 0.5 %; Lymphocytes # (auto) 1.75 K/uL (1.2-3.4); Lymphocytes % (auto) 22.1 %; Mean Corpuscular Hemoglobin 28.4 pg (25-34); Mean Corpuscular Hgb Conc 32.8 g/dL (32-36); Mean Corpuscular Volume 86.6 fL (80-100); Mean Platelet Volume 11.8 fL (7.4-10.4); Monocytes # (auto) 0.86 K/uL (0.11-0.59); Monocytes % (auto) 10.9 %; Neutrophils # (auto) 5.17 K/uL (1.4-6.5); Neutrophils % (auto) 65.3 %; Platelet Count 146 K/uL (130-400); RDW Standard Deviation 47.9 fL (36.4-46.3); Red Blood Count 4.61 M/uL (4.7-6.1); White Blood Count 7.91 K/uL (4.8-10.8)
[2019-09-04 06:58] LABS: Albumin Level 3.1 gm/dl (3.4-5.0); BUN Creatinine Ratio 11.2 (10-20); Calcium 8.2 mg/dl (8.5-10.1); Creatinine Clr Calc Pharmacy 89.6 ml/min; Est GFR (African American) 103.3; Est GFR (Non-African American) 89.1; Magnesium 2.4 mg/dl (1.8-2.4); Potassium 3.1 mmol/L (3.5-5.1)
[2019-09-04 07:00] LABS: Albumin Globulin Ratio 0.9 (0.9-2); Bilirubin,Total 0.5 mg/dl (0.2-1); Globulin 3.6 gm/dl (2.5-4.0); Total Protein 6.7 gm/dl (6.4-8.2)
--- NOTE | 2019-09-04 08:23 | Gastroenterology Progress Note ---
Date of Service September 04, 2019 Assessment & Plan (1) S/P ERCP: 69 year old male admitted s/p ERCP w/ symptomatic intermittent bradycardia - There is no evidence of a GI complication - the CT findings are likely related to recent sphincterotomy/stone extraction, his LFTs are normal, his pancreatic imaging is normal, and his abd exam is benign. He continued to feel well from a GI standpoint w/o abdominal pain, nausea/vomiting and is passing semi-formed brown stools. No GI indication for antibiotics. May advance diet as tolerated from a GI standpoint. GI to sign off. Appreciate ongoing management were hospitalist and cardiology service. Present on Admission?: Yes (2) Vasovagal episode: Present on Admission?: Yes Subjective Pt was seen, chart reviewed. Clinically feeling well, tolerating diet. Denies any abdominal pain, nausea, vomiting. He did have an episode of emesis which was correlated to bradycadia w/ vasovagal event. Now, tolerating PO. Passing gas, moving bowels without any concerns. His dizziness has since resolved. Was evaluated by cardiology who will plan for stress test, timing to be determined. Results & Data Vital Signs (Past 12 Hours) Vital Signs Temp Pulse Pulse Resp BP Pulse Ox 09/04/19 07:26 36.7 C 71 16 161/89 H 97 09/04/19 03:05 36.8 C 61 18 140/84 94 09/04/19 00:18 71 09/03/19 23:14 36.9 C 64 18 145/84 H 93
[2019-09-04] MEDS: FAMOTIDINE 20 MG TAB PO SCH (09:46)
[2019-09-04] MEDS: ONDANSETRON INJ 2 MG/ML 2 ML VIAL IV PRN (10:39)
[2019-09-04] MEDS ORDERED: METOCLOPRAMIDE HCL INJ 5 MG/ML 2 ML VIAL IV PRN (10:47)
[2019-09-04] MEDS ORDERED: METOCLOPRAMIDE HCL INJ 5 MG/ML 2 ML VIAL IV ONE (10:48)
--- NOTE | 2019-09-04 11:43 | Cardiology Progress Note ---
Date of Service September 04, 2019 Assessment & Plan (1) Bradycardia: Episode is suggestive of vasovagal event with association with acute emesis. Patient does have cardiac risk factors. Additional episode of emesis this morning postprandial. Transient bradycardia post emesis consistent with vasovagal complaint. Will not proceed with stress testing in this setting. We will restart amlodipine at reduced dose of 5 mg p.o. daily continue to hold beta-leander Would recommend supplementing potassium, order EKG for today Stress testing once GI issues resolve (2) Vasovagal episode: As above (3) S/P ERCP: Subjective Patient seen and examined, chart, medications, telemetry reviewed. No further issues overnight however this morning once again postprandially after advancing in diet and a full emesis with associated mild bradycardia. Currently no chest pains or discomfort mildly nauseated no shortness of breath Physical Exam Constitutional: WD/WN, vitals as above Eyes: PERRL, conjunctivae normal, anicteric sclerae ENMT: external ear and nose normal, oropharynx normal Neck: trachea midline, no thyromegaly Respiratory: normal respiratory effort, lungs clear to auscultation Cardiovascular: Rate/Rhythm: regular rate and regular rhythm Heart Sounds: normal S1 and normal S2; no gallop and no murmur Palpation: normal PMI Vessels: normal carotid upstroke and radial pulses present; no JVD and no carotid bruit Extremities: no edema Gastrointestinal (Abdomen): normal bowel sounds, soft, nontender, no hepatosplenomegaly Musculoskeletal: no cyanosis or clubbing, extremities motor strength 5/5 Skin: no rashes, warm and dry Neurologic: PERRL, EOMI, accommodation nl, no face palsy, no dysarthria Psychiatric: A+Ox3, euthymic affect Results & Data Vital Signs (Past 12 Hours) Vital Signs Temp Pulse Pulse Resp BP Pulse Ox 09/04/19 11:36 36.6 C 61 16 151/88 H 93 09/04/19 07:26 36.7 C 71 16 161/89 H 97 09/04/19 03:05 36.8 C 61 18 140/84 94 09/04/19 00:18 71
[2019-09-04] MEDS: AMLODIPINE BESYLATE 5 MG TAB PO SCH (12:20)
[2019-09-04] MEDS: POTASSIUM CHLORIDE / WTR 10 MEQ/100 ML PLCT IV SCH (12:21)
--- NOTE | 2019-09-04 14:43 | Hospitalist Progress Note ---
Date of Service September 04, 2019 Assessment & Plan (1) S/P ERCP: -as per admission H and P "This is a 69-year-old male with past medical history significant for hypertension, hyperlipidemia, prostate cancer status post surgery and radiation treatment in 2013, history of the laparoscopic casandra cystectomy at [place] in 2016. He was having abdominal pains, saw the GI and MRCP was done which showed choledocholithiasis with 2 gallstones, status post ERCP yesterday. Complete removal was accomplished with sphincterotomy, sphincteroplasty, and balloon extraction and he was discharged home. The patient did okay yesterday, but since today afternoon, his thought he was a little confused. The patient subjectively felt short of breath. He does not know if he was really short of breath or he dreamt. There was a fever at home and he was also feeling dizzy, so he came to the ER. In the ER, he was afebrile and hemodynamically stable. His whitecount was normal, but his lactate was 2.2. CT of the abdomen and pelvis showed 9 mm common bile duct with mild wall thickening and enhancement and minimal edema seen in the common hepatic duct and correlation with regards to cholangitis recommended. His LFTs were okay. The patient says since he was put on oxygen, the dizziness improved." -Patient was evaluated by gastroenterology consult on 09/03/[address] Forrester does not suspect cholangitis and noting patient with normal white blood cell counts. He recommend that Zosyn antibiotic be stopped and that patient be evaluated by cardiology service Confusion -initial confusion may have been from recent anesthesia medications from outpatient ERCP -is at mental baseline Intractable Nausea and Vomiting, Dizziness -IV antiemetics prn -unclear as to etiology of vomiting at this time -patient has received IV fluids -hold atorvastatin for now given less oral intake -trial of liquid diet -09/04/19: Patient was doing well with the liquid diet yesterday night and then at the liquid diet during breakfast. Later again had nausea and vomiting with which correlated with bradycardia and pauses he is recommended to continue to stay in the hospital for further cardiac monitoring and antiemetics and liquid diet. Patient and family member agrees to this plan. Therefore due to these concerns of bradycardia and and intractable vomiting, patient is being upgraded from observation status to full admission (2) Bradycardia: -given patient's bradycardia and low to low normotensive hypotension, hospitalist stopped any amlodipine or metoprolol from being given on 09/03/19 -Transient bradycardia and sinus pauses is likely due to vasovagal episodes with vomiting as per cardiology consult -echocardiogram of normal ejection fraction of 60 to 65 percent and no wall motion abnormalities -serum potassium 3.1 and IV potassium has been ordered for patient on 09/04/19 History of hypertension -cardiology service on 09/04/19 restart amlodipine at reduced dose of 5 mg p.o. daily continue to hold beta-leander (3) Vasovagal episode: -Transient bradycardia and sinus pauses is likely due to vasovagal episodes with vomiting as per cardiology consult -continue telemetry monitoring Gastroesophageal reflux disease -on famotidine History of prostate cancer -has had in the past surgery and radiation DVT prophylaxis: SCDs Subjective Patient was doing well with the liquid diet yesterday night and then at the liquid diet during breakfast. Later again had nausea and vomiting with which correlated with bradycardia and pauses. Patient did not lose consciousness. no acute abdomen pain. he does not feel symptoms currently at this time - no chest pain, not dizzy, not lightheaded but he is recommended to continue to stay in the hospital for further cardiac monitoring and antiemetics and liquid diet. Patient and family member agrees to this plan. Therefore due to these concerns of bradycardia and and intractable vomiting, patient is being upgraded from observation status to full admission Physical Exam Constitutional: comfortable Eyes: PERRL, conjunctivae normal, anicteric sclerae EOM intact bilaterally ENMT: external ear and nose normal, oropharynx normal Neck: normal visual inspection Respiratory: normal respiratory effort, lungs clear to auscultation Cardiovascular: Rate/Rhythm: regular rhythm and + bradycardic Gastrointestinal (Abdomen): normal bowel sounds, soft, nontender, no hepatosplenomegaly Musculoskeletal: Head/Neck/Chest: normocephalic and head atraumatic Neurologic: PERRL, EOMI, accommodation nl, no face palsy, no dysarthria CN's II-XI intact bilaterally Psychiatric: Orientation: alert and oriented x 3 Results & Data Vital Signs (Past 12 Hours) Vital Signs Temp Pulse Resp BP Pulse Ox 09/04/19 11:36 36.6 C 61 16 151/88 H 93 09/04/19 07:26 36.7 C 71 16 161/89 H 97 09/04/19 03:05 36.8 C 61 18 140/84 94
[2019-09-04] MEDS ORDERED: MECLIZINE HCL 25 MG TAB PO STA (15:44)
[2019-09-04] MEDS: MECLIZINE 12.5 MG TAB PO PRN (21:26)
[2019-09-05 07:49] LABS: Albumin Level 3.2 gm/dl (3.4-5.0); BUN Creatinine Ratio 14.8 (10-20); Calcium 8.9 mg/dl (8.5-10.1); Creatinine Clr Calc Pharmacy 80.7 ml/min; Est GFR (African American) 96.2; Potassium 3.3 mmol/L (3.5-5.1)
[2019-09-05 07:52] LABS: Albumin Globulin Ratio 0.9 (0.9-2); Bilirubin,Total 0.6 mg/dl (0.2-1); Globulin 3.4 gm/dl (2.5-4.0); Total Protein 6.6 gm/dl (6.4-8.2)
[2019-09-05] MEDS: FAMOTIDINE 20 MG TAB PO SCH (08:47)
[2019-09-05] MEDS: AMLODIPINE BESYLATE 5 MG TAB PO SCH (08:47)
[2019-09-05] MEDS: MECLIZINE 12.5 MG TAB PO PRN (09:45)
[2019-09-05] MEDS: POTASSIUM CHLORIDE / WTR 10 MEQ/100 ML PLCT IV SCH ×2 (09:46→11:08)
--- NOTE | 2019-09-05 13:18 | Hospitalist Progress Note ---
Date of Service September 05, 2019 Assessment & Plan (1) S/P ERCP: -as per admission H and P "This is a 69-year-old male with past medical history significant for hypertension, hyperlipidemia, prostate cancer status post surgery and radiation treatment in 2013, history of the laparoscopic casandra cystectomy at [place] in 2016. He was having abdominal pains, saw the GI and MRCP was done which showed choledocholithiasis with 2 gallstones, status post ERCP yesterday. Complete removal was accomplished with sphincterotomy, sphincteroplasty, and balloon extraction and he was discharged home. The patient did okay yesterday, but since today afternoon, his thought he was a little confused. The patient subjectively felt short of breath. He does not know if he was really short of breath or he dreamt. There was a fever at home and he was also feeling dizzy, so he came to the ER. In the ER, he was afebrile and hemodynamically stable. His whitecount was normal, but his lactate was 2.2. CT of the abdomen and pelvis showed 9 mm common bile duct with mild wall thickening and enhancement and minimal edema seen in the common hepatic duct and correlation with regards to cholangitis recommended. His LFTs were okay. The patient says since he was put on oxygen, the dizziness improved." -Patient was evaluated by gastroenterology consult on 09/03/[address] Forrester does not suspect cholangitis and noting patient with normal white blood cell counts. He recommend that Zosyn antibiotic be stopped and that patient be evaluated by cardiology service Confusion -initial confusion may have been from recent anesthesia medications from outpatient ERCP -is at mental baseline Intractable Nausea and Vomiting, Dizziness -IV antiemetics prn -unclear as to etiology of vomiting at this time -patient has received IV fluids -hold atorvastatin for now given less oral intake -trial of liquid diet -09/04/19: Patient was doing well with the liquid diet yesterday night and then at the liquid diet during breakfast. Later again had nausea and vomiting with which correlated with bradycardia and pauses he is recommended to continue to stay in the hospital for further cardiac monitoring and antiemetics and liquid diet. Patient and family member agrees to this plan. Therefore due to these concerns of bradycardia and and intractable vomiting, patient is being upgraded from observation status to full admission 09/05/19: prescriptions of Odansetron (Zofran) 4mg every 6 hours as needed for nausea or vomiting; Meclizine 12.5 mg every 12 hours as needed for dizziness (2) Bradycardia: -given patient's bradycardia and low to low normotensive hypotension, hospitalist stopped any amlodipine or metoprolol from being given on 09/03/19 -Transient bradycardia and sinus pauses is likely due to vasovagal episodes with vomiting as per cardiology consult -echocardiogram of normal ejection fraction of 60 to 65 percent and no wall motion abnormalities -Once patient's nausea and dizziness symptoms improves, patient should be referred to Cardiology for stress testing. Patient was seen by Dr. Tyson Mercado while in the hospital Hypokalemia -serum potassium 3.1 and IV potassium given 09/04/19 -serum potassium 3.3 on 09/05/19 and IV potassium given -Patient should have complete blood count and basic metabolic panel checked by primary care provider on follow up. History of hypertension -cardiology service on 09/04/19 restart amlodipine at reduced dose of 5 mg p.o. daily continue to hold beta-leander -continue as 5 mg daily (3) Vasovagal episode: -Transient bradycardia and sinus pauses is likely due to vasovagal episodes with vomiting as per cardiology consult -continue telemetry monitoring Gastroesophageal reflux disease -on famotidine History of prostate cancer -has had in the past surgery and radiation DVT prophylaxis: SCDs Discharge Diagnosis: Vasovagal episode, Intractable Nausea and Vomiting, Dizziness, Bradycardia, Hypokalemia, Hypertension, s/p ERCP as outpatient, initial confusion on admission Discharge Instructions "During this hospital stay, patient's metoprolol was discontinued because of worsening bradycardia after vomiting consistent with vasovagal symptoms. Patient is asked to avoid taking metoprolol on discharge. During this hospital stay, patient's amlodipine dose was reduced from 10 mg daily to 5 mg daily, continue as 5 mg daily Odansetron (Zofran) 4mg every 6 hours as needed for nausea or vomiting Meclizine 12.5 mg every 12 hours as needed for dizziness New prescriptions sent electronically to [facility] pharmacy [address] [place] [id number] Patient had potassium supplements in the hospital Patient should have complete blood count and basic metabolic panel checked by primary care provider on follow up. Once patient's nausea and dizziness symptoms improves, patient should be referred to Cardiology for stress testing. Patient was seen by Dr. Tyson Mercado while in the hospital Follow up appointment 09/08/2019 10:00 AM Provider Juan David Boggs PA-C [facility]" Subjective Patient feels some dizziness episode today. he reports has has been able to w alk. after discussion about his health with his at bedside. he feels comfortable to be ready for hospital discharge today. He was able to eat the regular meal. no abdomen pain. no headache. no chest pain. no shortness of breath. no palpitations. Discharge Instructions were discussed at length Physical Exam Constitutional: comfortable Eyes: PERRL, conjunctivae normal, anicteric sclerae EOM intact bilaterally ENMT: external ear and nose normal, oropharynx normal Neck: normal visual inspection Respiratory: normal respiratory effort, lungs clear to auscultation Cardiovascular: Rate/Rhythm: regular rhythm and + bradycardic Gastrointestinal (Abdomen): normal bowel sounds, soft, nontender, no hepatosplenomegaly Musculoskeletal: Head/Neck/Chest: normocephalic and head atraumatic Neurologic: PERRL, EOMI, accommodation nl, no face palsy, no dysarthria CN's II-XI intact bilaterally Psychiatric: Orientation: alert and oriented x 3 Results & Data Vital Signs (Past 12 Hours) Vital Signs Temp Pulse Resp BP Pulse Ox 09/05/19 11:36 36.6 C 62 18 134/79 92 09/05/19 08:20 36.7 C 62 18 148/86 H 94 09/05/19 04:02 36.8 C 64 18 157/77 H 92
--- NOTE | 2019-09-05 13:28 | Discharge Summary ---
Date of Service September 05, 2019 Admission HPI Per Admitting Provider CHIEF COMPLAINT: Dizzy, short of breath, fever, and some confusion. HISTORY OF PRESENT ILLNESS: This is a 69-year-old male with past medical history significant for hypertension, hyperlipidemia, prostate cancer status post surgery and radiation treatment in 2013, history of the laparoscopic cholecystectomy at [place] in 2016. He was having abdominal pains, saw the GI and MRCP was done which showed choledocholithiasis with 2 gallstones, status post ERCP yesterday. Complete removal was accomplished with sphincterotomy, sphincteroplasty, and balloon extraction and he was discharged home. The patient did okay yesterday, but since today afternoon, his thought he was a little confused. The patient subjectively felt short of breath. He does not know if he was really short of breath or he dreamt. There was a fever at home and he was also feeling dizzy, so he came to the ER. In the ER, he was afebrile and hemodynamically stable. His white count was normal, but his lactate was 2.2. CT of the abdomen and pelvis showed 9 mm common bile duct with mild wall thickening and enhancement and minimal edema seen in the common hepatic duct and correlation with regards to cholangitis recommended. His LFTs were okay. The patient says since he was put on oxygen, the dizziness improved. Currently resting comfortably and hemodynamically stable. Also has received fluids and Zosyn in the ER. Has some mild headache. No blurred visions. He is hard of hearing. Has some runny nose. He thinks he was getting cold. He has some cough with some whitish phlegm. He has some sore throat from the procedure yesterday. Appetite is okay, but did not eat from lunch today. Denies any chest pain or shortness of breath currently. He had some mild abdominal discomfort earlier but there is no pain now. No nausea, no vomiting. No diarrhea or constipation. No blood in the stools or black stools. Normal bladder movements. No hematuria or burning micturition. No swelling in the legs. No rash. ALLERGIES: No known drug allergies. PAST MEDICAL HISTORY: As mentioned above. PAST SURGICAL HISTORY: Colonoscopy with biopsy, EGDs, radical removal prostate biopsy, repair of recurrent inguinal hernia, and ERCP yesterday. MEDICATIONS: The patient is on magnesium 250 mg p.o. daily, Pepcid 40 mg p.o. b.i.d., allopurinol 100 mg p.o. daily, Toprol-XL 25 mg p.o. daily, triamcinolone apply to affected area p.r.n., omeprazole 20 mg p.o. at bedtime, Lasix 20 mg p.o. daily p.r.n. for weight gain, amlodipine 10 mg p.o. daily, tramadol 50 mg p.o. q. 6 hours p.r.n., atorvastatin 40 mg p.o. daily, aspirin 81 mg p.o. daily. FAMILY HISTORY: No family history on file. SOCIAL HISTORY: . No smoking, no alcohol, no drug use. REVIEW OF SYSTEMS: As per HPI. Rest of the review of systems negative. Admission Exam Per Admitting Provider PHYSICAL EXAMINATION: GENERAL: The patient is of moderate built, not in acute distress. VITAL SIGNS: Temperature 37.4, pulse 56, respiratory rate 18, blood pressure 115/77, oxygen 92% on 2 liters. HEENT: No pallor, no icterus. Pupils equal, round, reactive to light. NECK: No JVD, no neck masses, no carotid bruits. CARDIOVASCULAR: S1, S2 heard, regular rate and rhythm, no murmur, no gallop. RESPIRATORY SYSTEM: Normal AP diameter. No accessory muscle use. No wheezing, no crackles. ABDOMEN: Soft, bowel sounds present, nontender. No distention. CENTRAL NERVOUS SYSTEM: Cranial nerves II-XII grossly intact, nonfocal. EXTREMITIES: No edema, no erythema. Principal Diagnosis Vasovagal episode, Intractable Nausea and Vomiting, Dizziness, Bradycardia, Hypokalemia, Hypertension, s/p ERCP as outpatient, initial confusion on admission Discharge Exam Constitutional comfortable Eyes PERRL, conjunctivae normal, anicteric sclerae EOM intact bilaterally ENMT external ear and nose normal, oropharynx normal Neck normal visual inspection Respiratory normal respiratory effort, lungs clear to auscultation Cardiovascular Rate/Rhythm: regular rhythm and + bradycardic Gastrointestinal (Abdomen) normal bowel sounds, soft, nontender, no hepatosplenomegaly Musculoskeletal Head/Neck/Chest: normocephalic and head atraumatic Neurologic PERRL, EOMI, accommodation nl, no face palsy, no dysarthria CN's II-XI intact bilaterally Psychiatric Orientation: alert and oriented x 3 Discharge Data Allergies Allergy/AdvReac Type Severity Reaction Status Date / Time No Known Allergies Allergy Verified 09/02/19 19:53 Consultations 09/02/19 21:19 ED Decision to Admit Stat 09/02/19 22:45 Consult Gastroenterology Routine 09/03/19 11:27 Consult Cardiology Routine Ordered Studies 09/02/19 18:38 CT abd pelvis IV con only Stat CT head/brain wo con Stat Hospital Course (1) S/P ERCP: -as per admission H and P "This is a 69-year-old male with past medical history significant for hypertension, hyperlipidemia, prostate cancer status post surgery and radiation treatment in 2013, history of the laparoscopic cholecystectomy at [place] in 2016. He was having abdominal pains, saw the GI and MRCP was done which showed choledocholithiasis with 2 gallstones, status post ERCP yesterday. Complete removal was accomplished with sphincterotomy, sphincteroplasty, and balloon extraction and he was discharged home. The patient did okay yesterday, but since today afternoon, his thought he was a little confused. The patient subjectively felt short of breath. He does not know if he was really short of breath or he dreamt. There was a fever at home and he was also feeling dizzy, so he came to the ER. In the ER, he was afebrile and hemodynamically stable. His whitecount was normal, but his lactate was 2.2. CT of the abdomen and pelvis showed 9 mm common bile duct with mild wall thickening and enhancement and minimal edema seen in the common hepatic duct and correlation with regards to cholangitis recommended. His LFTs were okay. The patient says since he was put on oxygen, the dizziness improved." -Patient was evaluated by gastroenterology consult on 09/03/[address] Forrester does not suspect cholangitis and noting patient with normal white blood cell counts. He recommend that Zosyn antibiotic be stopped and that patient be evaluated by cardiology service Confusion -initial confusion may have been from recent anesthesia medications from outpatient ERCP -is at mental baseline Intractable Nausea and Vomiting, Dizziness -IV antiemetics prn -unclear as to etiology of vomiting at this time -patient has received IV fluids -hold atorvastatin for now given less oral intake -trial of liquid diet -09/04/19: Patient was doing well with the liquid diet yesterday night and then at the liquid diet during breakfast. Later again had nausea and vomiting with which correlated with bradycardia and pauses he is recommended to continue to stay in the hospital for further cardiac monitoring and antiemetics and liquid diet. Patient and family member agrees to this plan. Therefore due to these concerns of bradycardia and and intractable vomiting, patient is being upgraded from observation status to full admission 09/05/19: prescriptions of Odansetron (Zofran) 4mg every 6 hours as needed for nausea or vomiting; Meclizine 12.5 mg every 12 hours as needed for dizziness (2) Bradycardia: -given patient's bradycardia and low to low normotensive hypotension, hospitalist stopped any amlodipine or metoprolol from being given on 09/03/19 -Transient bradycardia and sinus pauses is likely due to vasovagal episodes with vomiting as per cardiology consult -echocardiogram of normal ejection fraction of 60 to 65 percent and no wall motion abnormalities -Once patient's nausea and dizziness symptoms improves, patient should be referred to Cardiology for stress testing. Patient was seen by Dr. Tyson Mercado while in the hospital Hypokalemia -serum potassium 3.1 and IV potassium given 09/04/19 -serum potassium 3.3 on 09/05/19 and IV potassium given -Patient should have complete blood count and basic metabolic panel checked by primary care provider on follow up. History of hypertension -cardiology service on 09/04/19 restart amlodipine at reduced dose of 5 mg p.o. daily continue to hold beta-leander -continue as 5 mg daily (3) Vasovagal episode: -Transient bradycardia and sinus pauses is likely due to vasovagal episodes with vomiting as per cardiology consult -continue telemetry monitoring Gastroesophageal reflux disease -on famotidine History of prostate cancer -has had in the past surgery and radiation DVT prophylaxis: SCDs Discharge Diagnosis: Vasovagal episode, Intractable Nausea and Vomiting, Dizziness, Bradycardia, Hypokalemia, Hypertension, s/p ERCP as outpatient, initial confusion on admission Discharge Instructions "During this hospital stay, patient's metoprolol was discontinued because of worsening bradycardia after vomiting consistent with vasovagal symptoms. Patient is asked to avoid taking metoprolol on discharge. During this hospital stay, patient's amlodipine dose was reduced from 10 mg daily to 5 mg daily, continue as 5 mg daily Odansetron (Zofran) 4mg every 6 hours as needed for nausea or vomiting Meclizine 12.5 mg every 12 hours as needed for dizziness New prescriptions sent electronically to [facility] pharmacy [address] [place] [id number] Patient had potassium supplements in the hospital Patient should have complete blood count and basic metabolic panel checked by primary care provider on follow up. Once patient's nausea and dizziness symptoms improves, patient should be referred to Cardiology for stress testing. Patient was seen by Dr. Tyson Mercado while in the hospital Follow up appointment 09/08/2019 10:00 AM Provider Juan David Boggs PA-C [facility] Patient advised not to drive motor vehicle until dizziness episodes resolves " Total Time Total Time Spent Total Time Spent (In Minutes): 40 minutes Total Time Includes: Examination of the Patient, Discharge Planning, Medication Reconciliation and Communication With Other Providers Discharge Plan Discharge Items Patient Disposition: Home - Self-Care Reason For Visit: DIZZINESS,CONFUSION Discharge Diagnosis: Vasovagal episode, Intractable Nausea and Vomiting, Dizziness, Bradycardia, Hypokalemia, Hypertension, s/p ERCP as outpatient, initial confusion on admission Condition on Discharge: Fair Activity: Per Instructions section Driving/Machine Use: no driving until dizziness episodes stop Non-emergency contact: Primary Care Provider Call non-emergency contact if: you have any medication questions Follow-up/Referrals: Porter Samano DO [Primary Care Provider] - Diet: Regular Addtl Attending Provider Instructions: During this hospital stay, patient's metoprolol was discontinued because of worsening bradycardia after vomiting consistent with vasovagal symptoms. Patient is asked to avoid taking metoprolol on discharge. During this hospital stay, patient's amlodipine dose was reduced from 10 mg daily to 5 mg daily, continue as 5 mg daily Odansetron (Zofran) 4mg every 6 hours as needed for nausea or vomiting Meclizine 12.5 mg every 12 hours as needed for dizziness. Patient advised not to drive motor vehicle until dizziness episodes resolves New prescriptions sent electronically to [facility] pharmacy [address] [place] [id number] Patient had potassium supplements in the hospital Patient should have complete blood count and basic metabolic panel checked by primary care provider on follow up. Once patient's nausea and dizziness symptoms improves, patient should be referred to Cardiology for stress testing. Patient was seen by Dr. Tyson Mercado while in the hospital Follow up appointment 09/08/2019 10:00 AM Provider Juan David Boggs PA-C Department [facility] Pending Studies at Discharge: No Stand-Alone Forms: My [facility] Medications and DC Order Prescriptions: New amlodipine [Norvasc] 5 mg Tablet 5 mg PO QAM 30 Days Qty: 30 RF: 0 meclizine 12.5 mg Tablet 12.5 mg PO Q12H PRN (Reason: dizziness) 5 Days Qty: 10 RF: 0 ondansetron HCl [Zofran] 4 mg tablet 4 mg PO Q6H 5 Days Qty: 20 RF: 0 Continued atorvastatin 40 mg tablet 40 mg PO QAM RF: 0 famotidine 40 mg tablet 40 mg PO DAILY PRN (Reason: Indigestion) RF: 0 allopurinol 100 mg tablet 100 mg PO QAM RF: 0 aspirin 81 mg Tablet,Delayed Release (Dr/Ec) 81 mg PO QAM RF: 0 omeprazole 20 mg capsule,delayed release(DR/EC) 20 mg PO QAM RF: 0 magnesium 250 mg Tablet PO QAM RF: 0 Discontinued amlodipine 10 mg tablet 10 mg PO QAM RF: 0 metoprolol succinate 25 mg tablet extended release 24 hr 25 mg PO QAM RF: 0 Discharge Orders: Discharge Order (Routine); Ordered 09/05/19 Ordered By: Rashad Mcintyre Admission Data Admit Date/Time: 09/04/19 14:32 Attending Provider: Rashad Mcintyre Admit Provider: Anuj Jackson Primary Care Provider: Porter Samano Other Providers: Anuj Jackson ; Fermin Forrester ; Tyson Mercado
== END 2019-09-05 15:06 | disposition home or self-care (01) | DRG 312 ==
LOC: ED 18:16 → 2N 18:16